=== PATIENT | male | born 1985 | race Two or more races ===

== ENCOUNTER 2018-08-29 13:28 | Emergency (ER) | payer OTHER ==
[~2018-08-29] VITALS: Ht 175.3 cm; Wt 99.8 kg
--- NOTE | 2018-08-29 13:57 | NUR ---
PT [id number] AND RONEY, HOMELESS, FOUND HIM IN THE STREET +SI,-HI, PT STATES "I WANT TO JUMP OFF THE BRIDGE AND KILL MYSELF" PT IS AAOX4, NOT IN RESPIRATORY DISTRESS, V/S STABLE, KEPT RESTED AND COMFORTABLE, WILL CONTINUE TO MONITOR.
--- NOTE | 2018-08-29 14:00 | NUR ---
URINE SPECIMEN COLLECTED AND SENT TO LAB.
--- NOTE | 2018-08-29 14:00 | NUR ---
SUICIDAL PRECAUTION INITIATED.
[2018-08-29 14:10] LABS: APPEARANCE,URINE Slightly Cloudy (CLEAR); BILIRUBIN,URINE SMALL (NEGATIVE); BLOOD, URINE Negative Ery/uL (NEGATIVE); KETONES,URINE 15 (NEGATIVE); LEUKOCYTE ESTERASE ,URINE Negative (NEGATIVE); NITRITE, URINE Negative (NEGATIVE); PROTEIN,URINE Negative (NEGATIVE); UGLUCOSE Negative (NEGATIVE); UROBILINOGEN,URINE 0.2 EU/dL (0.2)
--- NOTE | 2018-08-29 14:10 | NUR ---
ER PHLEB AT BEDSIDE FOR BLOOD DRAW.
[2018-08-29 14:11] LABS: COLOR,URINE Dark Yellow (YELLOW)
[2018-08-29 14:21] LABS: BASOPHILS # (AUTO) 0.1 /CMM (0.0-0.2); BASOPHILS % (AUTO) 0.8 % (0.0-2.0); EOSINOPHILS % (AUTO) 0.8 % (0.0-6.0); HEMATOCRIT 49 % (39-51); HEMOGLOBIN 16.9 g/dL (13.5-17.5); LYMPHOCYTES # (AUTO) 2.1 /CMM (0.8-4.8); LYMPHOCYTES % (AUTO) 20.7 % (20.0-44.0); MEAN CORPUSCULAR HGB CONC 35 g/dl (31.0-36.0); MEAN CORPUSCULAR VOLUME 91 fL (80-96); MONOCYTES # (AUTO) 0.9 /CMM (0.1-1.30); MONOCYTES % (AUTO) 9.3 % (2.0-12.0); NEUTROPHILS # (AUTO) 6.8 /CMM (1.8-8.9); NEUTROPHILS % (AUTO) 68.4 % (43.0-81.0); PLATELET COUNT (AUTO) 306 /CMM (150-450); RED BLOOD CELL COUNT(AUTO) 5.34 MIL/uL (4.5-6.0)
[2018-08-29 14:26] LABS: BACTERIA,URINE Few /HPF (None Seen); MUCUS,URINE Moderate /LPF (None Seen); SQUAMOUS EPITHELIAL CELL,UR Few /HPF (None Seen); WBC,URINE 0-2 /HPF (0-3)
[2018-08-29 14:35] LABS: ACETAMINOPHEN < 2 ug/ml (10-30); ALANINE AMINOTRANSFERASE 44 U/L (12-78); ALBUMIN 4.1 g/dL (3.4-5.0); ALCOHOL, BLOOD 190 mg/dL (0-0); ALKALINE PHOSPHATASE 87 U/L (46-116); ASPARTATE AMINOTRANSFERASE 20 U/L (15-37); BILIRUBIN,DIRECT 0.1 mg/dL (0.0-0.2); BILIRUBIN,TOTAL 0.3 mg/dL (0.2-1.0); CALCIUM, SERUM 9.4 mg/dL (8.5-10.1); CARBON DIOXIDE 25 mmol/L (21-32); CHLORIDE 104 mmol/L (98-107); CREATININE 1.3 mg/dL (0.6-1.3); GLUCOSE 106 mg/dL (74-106); POTASSIUM 3.9 mmol/L (3.5-5.1); SALICYLATE < 2.8 mg/dL (2.8-20.0); SODIUM SERUM 141 mmol/L (136-145); TOTAL PROTEIN, SERUM 7.9 g/dL (6.4-8.2); UREA NITROGEN, BLOOD 23 mg/dL (7-18)
[2018-08-29] MEDS ORDERED: OLANZAPINE 5 MG TABLET PO ONE (15:00)
[2018-08-29] MEDS ORDERED: OLANZAPINE 5 MG TABLET ONE (15:06)
--- NOTE | 2018-08-29 16:12 | NUR ---
RHIANNA was informed by SAMEER Lizama and CARLA Cristobal that pt. stated he is suicidal and willing to go voluntary to [facility]. RHAINNA contacted [facility] and spoke with Olayinka in Intake who informed they do have beds available. RHIANNA faxed referral packet to intake at . Pt's alcohol level is still high for psychiatric hospital admission. CARLA Jain is ordering another alcohol level check at this time. RHIANNA informed ADRIAN Lizama that referral packet was faxed to [facility] and to follow up with them once the alcohol level for the pt. has lowered.
--- NOTE | 2018-08-29 21:31 | NUR ---
PT IN BED SLEEPING,.AROUSES EASILY./ W/ NO S/S OF DISTRESS, PAIN OR DISCOMFORT. WILL CONT TO MONITOR ,
--- NOTE | 2018-08-29 22:35 | NUR ---
PER INDIO AT [facility], WILL CALL BACK WITH UPDATE REGARDING TRANSFER
[2018-08-29 23:15] VITALS: BP 122/75
--- NOTE | 2018-08-29 23:19 | NUR ---
PT ACCEPTED TO [facility] BY DR MOISE. # FOR REPORT [phone]
--- NOTE | 2018-08-29 23:34 | NUR ---
PT MADE AYALA OF TRANSPORTATION. AGREED AND SIGNED THE CONSENT
--- NOTE | 2018-08-29 23:42 | NUR ---
CALLED [facility], AMBULANCE TO [facility] ETA TO FOLLOW, REF ID [id number]
--- NOTE | 2018-08-29 23:45 | NUR ---
CALLED [facility] AND SPOKE TO CAMPBELL TO GIVE REPORT. WAITED ON HOLD FOR 10 MINUTES WITH NO ANSWER. CAMPBELL WAS PROVIDED W/ OUR PHONE NUMBER FOR A CALL BACK FOR REPORT.
--- NOTE | 2018-08-29 23:52 | NUR ---
UPDATE ON TRANSPORT ETA TO [facility] WILL BE 1245 AND IT WILL BE WITH [facility].
--- NOTE | 2018-08-29 23:53 | NUR ---
RECEIVED A CALL FROM [facility]. SPOKE TO BRANDY AND GAVE REPORT
--- NOTE | 2018-08-30 01:39 | NUR ---
PT WAS PICKED UP BY [facility] AND TRANSFERRED TO [facility] VIA [facility] IN STABLE CONDITION . REPORT GIVEN TO php developer
== END 2018-08-30 01:46 ==
LOC: ER 13:31
DX: R45.851 Suicidal ideations (principal); F10.129 Alcohol abuse with intoxication, unspecified; E86.0 Dehydration; R31.9 Hematuria, unspecified; R41.82 Altered mental status, unspecified; R51 Headache; Z59.0 Homelessness; Y90.6 Blood alcohol level of 120-199 mg/100 ml
CPT/HCPCS: 36415; 70450; 80048; 80076; 80305; 80307 ×3; 80329; 81001; 85025; 93005; 99285; G0480; 81000-TC